=== PATIENT | female | born 1995 | race Caucasian/White ===

== ENCOUNTER 2021-08-15 18:14 | Emergency (ER) | payer BC ==
[2021-08-15] MEDS ORDERED: SODIUM CHLORIDE 0.9% 1,000 ML IV STA (19:50)
--- NOTE | 2021-08-15 19:53 | ED ---
General Adult HPI - General Chief complaint: Upper Respiratory Infection Stated complaint: COVID-19 Time Seen by Provider: 08/15/21 18:19 Source: patient, RN notes reviewed Mode of arrival: ambulatory Limitations: no limitations - History of Present Illness Initial comments: Patient is a pleasant 25-year-old female presenting to the emergency department for COVID-19 infection. Onset of symptoms was just a couple, 2-3 days ago and minimal with congestion. Patient felt much worse today. Patient did have positive covert test and primary care physician office advised her to come for monoclonal antibody infusion. Patient has continued congestion. Patient has mild cough. Patient does feel slight short of breath. Patient has fatigue and myalgias. Patient has loss of smell. Patient has had decreased appetite the past several days. - Related Data Allergies Allergy/AdvReac Type Severity Reaction Status Date / Time No Known Allergies Allergy Verified 08/15/21 19:10 Review of Systems ROS Statement: Those systems with pertinent positive or pertinent negative responses have been documented in the HPI. ROS Other: All systems not noted in ROS Statement are negative. Constitutional: Reports: chills Eyes: Denies: eye pain ENT: Denies: ear pain Respiratory: Reports: cough Cardiovascular: Denies: edema Endocrine: Reports: fatigue Gastrointestinal: Denies: vomiting Musculoskeletal: Denies: back pain Past Medical History Past Medical History: No Reported History History of Any Multi-Drug Resistant Organisms: None Reported Past Surgical History: No Surgical Hx Reported Past Psychological History: Anxiety Smoking Status: Never smoker Past Alcohol Use History: None Reported Past Drug Use History: None Reported General Exam Limitations: no limitations General appearance: alert, in no apparent distress Head exam: Present: normocephalic Eye exam: Present: normal appearance Neck exam: Present: normal inspection Respiratory exam: Present: normal lung sounds bilaterally Cardiovascular Exam: Present: regular rate, normal rhythm GI/Abdominal exam: Present: soft. Absent: tenderness Extremities exam: Present: normal inspection. Absent: pedal edema, calf tenderness Neurological exam: Present: alert Psychiatric exam: Present: normal affect, normal mood Skin exam: Present: normal color Course Vital Signs 08/15/21 19:07 Temperature 98.6 F Pulse Rate 73 Respiratory 18 Rate Blood Pressure 136/92 O2 Sat by Pulse 100 Oximetry Medical Decision Making - Medical Decision Making Patient did receive monoclonal antibody infusion. Disposition Clinical Impression: COVID-19 Disposition: HOME SELF-CARE Condition: Stable Instructions (If sedation given, give patient instructions): Coronavirus Disease 2019 (COVID-19) Additional Instructions: [id number] vitamin C, vitamin D, and zinc. Melatonin at bedtime may help. [id number] Tylenol as needed. Please follow-up with primary care physician in the next couple days for recheck. Return for difficulty in breathing, not tolerating oral intake, uncontrolled fevers, worsening or change in symptoms or any other concerns. Is patient prescribed a controlled substance at d/c from ED?: No Referrals: Kerwin Casper MD [Primary Care Provider] - 1-2 days Time of Disposition: 19:53
[2021-08-15 20:27] VITALS: RESP 16
[2021-08-15] MEDS ORDERED: SODIUM CHLORIDE 0.9% 50 ML IVPB ONE (20:45)
[2021-08-15] MEDS ORDERED: BAMLANIVIMAB (EUA) 700 MG, ETESEVIMAB (EUA) 1,400 MG in SODIUM CHLORIDE 0.9% 50 ML IVPB ONE (20:45)
[2021-08-15 22:22] VITALS: BP 130/93; PULSE 72; TEMP 97.7
== END 2021-08-15 22:22 | disposition home or self-care (01) ==
LOC: EC 18:14
DX: U07.1 COVID-19 (principal)
CPT/HCPCS: 99283; 96365; 96361; J3490

== ENCOUNTER → 2022-10-01 | Outpatient (CLI) | payer SELFPAY ==
--- NOTE | 2022-10-01 13:56 | USB ---
Reason for Exam: Clinical finding. Technique: Method: Whole Breast Handheld. Findings: The whole breast of both breasts, the axilla of both breasts and the retroareolar of both breasts were scanned. A complete US of all four quadrants of both breasts, axilla, and retro-areolar region were reviewed. No solid or cystic masses are identified.. Overall Assessment: Negative, BI-RAD 1 Management: Screening Mammogram of both breasts at age 40. A clinical breast exam by your physician is recommended on an annual basis and results should be correlated with mammographic findings. This exam should not preclude additional follow-up of suspicious palpable abnormalities. Results were given to the patient verbally at the time of exam. Electronically signed and approved by: Calderon Luna D.O.
== END | disposition home or self-care (01) ==
LOC: RADUSWWP 13:11
PROVIDERS: ATTEND Obstetrics & Gynecology
DX: N63.10 Unspecified lump in the right breast, unspecified quadrant (principal); N63.20 Unspecified lump in the left breast, unspecified quadrant